=== PATIENT | male | born 1950 | race Caucasian/White ===

== ENCOUNTER 2018-10-18 01:37 | Day surgery (SDC) | payer MEDICARE ==
[2018-10-17 10:29] LABS: PLATELET COUNT, AUTOMATED 330 K/uL (150-450)
[~2018-10-18] VITALS: Ht 185.4 cm; Wt 69.4 kg
[2018-10-18] VITALS (10 sets, daily range): BP systolic 150–181; BP diastolic 79–92
[2018-10-18] MEDS ORDERED: LIDOCAINE/SOD BICARB 8.4% SYR ID ONE (06:45)
[2018-10-18] MEDS ORDERED: ACETAMINOPHEN 500 MG TAB PO ONE (06:45)
[2018-10-18] MEDS ORDERED: PREGABALIN 150 MG CAPSULE PO ONE (06:45)
[2018-10-18] MEDS ORDERED: FAMOTIDINE 20 MG TAB PO ONE (06:45)
[2018-10-18] MEDS ORDERED: MIDAZOLAM 2 MG/2 ML VIAL IVP PRN (06:45)
[2018-10-18] MEDS ORDERED: ceFAZolin(*) 2GM/D5W 50ML 50 ML IVPB ONE (06:45)
[2018-10-18] MEDS ORDERED: NORMOSOL R SOLN(*) 1000 ML BAG 1,000 ML IV PRN (06:45)
[2018-10-18] MEDS ORDERED: ROPIVACAINE 0.5% 20 ML VIAL ONE (13:44)
[2018-10-18] MEDS ORDERED: ROCURONIUM BR 10 MG/ML 5 ML SY 5 ML ONE (14:18)
[2018-10-18] MEDS ORDERED: ONDANSETRON 4 MG/2 ML VIAL ONE (14:30)
[2018-10-18] MEDS ORDERED: DEXAMETHASONE SOD PHOS 10MG/ML ONE (14:30)
[2018-10-18] MEDS ORDERED: PROPOFOL EMUL(*) 10MG/ML 20 ML 20 ML ONE (14:30)
[2018-10-18] MEDS ORDERED: HYDROmorphone HCL 2 MG/ML SDV ONE (14:30)
[2018-10-18] MEDS ORDERED: fentaNYL CITR 100 MCG/2 ML AMP ONE (15:31)
[2018-10-18] MEDS ORDERED: LABETALOL HCL 100 MG/20ML VIAL ONE ×2 (15:32)
[2018-10-18] MEDS ORDERED: SUGAMMADEX SOD 200 MG/2 ML SDV ONE (15:34)
[2018-10-18] MEDS ORDERED: DOCU-416 PO (16:03)
[2018-10-18] MEDS ORDERED: TRAM-420 PO (16:03)
[2018-10-18] MEDS ORDERED: hydrALAZINE HCL 20 MG/ML VIAL ONE (16:07)
--- NOTE | 2018-10-18 16:07 | Short(Outpt) Discharge Summary ---
Discharge Summary Reason for Hosp/Final Diag: (1) Right inguinal hernia Status: Chronic Hospital Course & Plan: Robotic RIH repair completed without problems. Departure Discharge to: Home, Self Care Discharge Instructions Home Meds Active Scripts Docusate Sodium (COLACE) 100 Mg Capsule, 1 CAP PO BID, #30 CAP 0 Refills TAKE WITH A FULL GLASS OF WATER Prov:TREVOR MARIA MD 10/18/18 Tramadol Hcl (TRAMADOL HCL) 50 Mg Tablet, 1 TAB PO Q4H, #20 TAB 0 Refills Prov:TREVOR MARIA MD 10/18/18 Follow up Referrals: General Surgery - 10/31/18 @ Surgery, General with TREVOR MARIA MD You have a follow up appointment scheduled with Dr. Maria on 10/31/18, at 2:15pm. Diet: Regular Activity: No Heavy Lifting Special Instructions: You may remove the white surgical dressings on 10/20/18, then you can shower. After showering, leave the incisions open to air but leave the steristrips in place until they fall off on their own. Do not immerse the incisions for 2 weeks. Avoid any activity that involves straining or lifting more than 10 pounds for 2 weeks after surgery. TREVOR MARIA MD Oct 18, 2018 16:07
--- NOTE | 2018-10-18 16:14 | Post Operative Progress Note ---
Post Operative Progress Note Date: Oct 18, 2018 Time: 16:04 Surgeon: Marco A Dictation number: [id number] Anesthesia: GETA by Dr. Lopez Pre-Op Diagnosis: RIH Post-Op Diagnosis: JESSICA, indirect Findings: Right indirect inguinal hernia Procedure(s): Robotic RIH repair Specimen Removed:(May be N/A): None Complications: none Fluids: see anesthesia record Estimated Blood Loss: Minimal Date OP Note Dictated: Oct 18, 2018 Time OP Note Dictated: 16:05 TREVOR MARIA MD Oct 18, 2018 16:14
[2018-10-18] MEDS ORDERED: traMADol 50 MG TAB PO ONE (17:15)
--- NOTE | 2018-10-18 18:48 | NUR ---
DR MARIA NOTIFIED OF CONTINUED HYPERTENSION, OK FOR PATIENT TO GO HOME, ADVISED TO HAVE PATIENT TAKE BLOOD PRESSURES AT HOME AND KEEP A LOG, IF PATIENT BLOOD PRESSURE IS GREATER THAN 200, HE WILL NEED TO GO TO EMERGENCY ROOM. THIS RN VERIFIED WITH PATIENT THAT THEY HAVE A BLOOD PRESSURE MACHINE AND RELAYED ADVICE FROM DR MARIA, PATIENT AND SPOUSE AGREED.
--- NOTE | 2018-10-18 20:51 | OPERATIVE REPORT 1 ---
EVENT DATE: October 18, 2018 SURGEON: Donny Strickland MD ANESTHESIOLOGIST: Aníbal Lopez MD ANESTHESIA: General endotracheal anesthesia. PREOPERATIVE DIAGNOSIS Right inguinal hernia. POSTOPERATIVE DIAGNOSIS Right inguinal hernia, indirect. PROCEDURE PERFORMED Robotic right inguinal hernia repair. COMPLICATIONS None. CONDITION Stable. BLOOD LOSS Minimal. FINDINGS Patient had an indirect right inguinal hernia. There was no obvious left inguinal hernia, but the sigmoid colon was up against the abdominal wall blocking the internal ring, but there did not look to be any herniated contents on the patient's left side. INDICATIONS This is a 67-year-old gentleman who presented to my office with a right groin bulge consistent with inguinal hernia. I discussed his options with him, and he was requesting to have it repaired and agreed to a robotic right inguinal hernia repair. DESCRIPTION OF PROCEDURE The patient was brought to the operating room and placed supine on the operating table. General endotracheal anesthesia was administered, and his abdomen was prepped and draped in a sterile fashion. Timeout was completed, and I injected the left mid abdominal skin with 0.5% ropivacaine plain. I made an 8 mm transverse incision and used the Veress needle to then access the peritoneal cavity with no problems. I then insufflated the peritoneal cavity to a pressure of 15 mmHg. I then used an 8 mm robotic port with an optical trocar in place and used the camera inside the trocar, focused, and inserted this port into the insufflated abdomen under direct visualization without any problems. I then placed another 8 mm port in the supraumbilical midline and a third 8 mm robotic port in the right mid abdomen. I then inspected both groins and saw only a right inguinal hernia. I did not see any hernia on the left side. I inserted a right-sided large piece of ProGrip mesh into the peritoneal cavity as well as an absorbable V-Loc suture, and then the patient was placed in Trendelenburg. The robot was brought in, docked, and targeted, and then I scrubbed out and went to the console. I then divided the peritoneum on the patient's right lower abdomen from just medial to anterior superior iliac spine over across the midline and then created a preperitoneal space all the way down to the groin. I clearly cleaned off the pubic symphysis and right pubic tubercle as well as Pierce ligament and the ileopubic tract from lateral cord structures all the way almost to the anterior superior iliac spine. I then identified the sac and pulled the sac out of the inguinal canal and it from the vas deferens and the gonadal vessels. These were easily identified, and the sac was easily from these structures. Once I had it completely , and the peritoneal edge was well proximal to where the gonadal vessels and the vas deferens splay. I then brought in a piece of mesh in the preperitoneal space and deployed it so that it covered the pubic tubercle, Pierce ligament, and the ileopubic tract, and covered the whole myopectineal arch with several centimeters of overlap on all sides. The mesh laid nice and flat with no wrinkling or other abnormalities. I was very happy with how it looked. I then sewed the peritoneum back together with a running V-Loc absorbable suture. The needle was removed from the abdomen, and the robotic instruments were removed. I scrubbed back in, desufflated the abdomen, and removed the ports. I then closed the skin at each port site with 4-0 Monocryl subcuticular suture. Skin was cleaned and dried, and Steri-Strips were applied, followed by sterile surgical dressings. The patient was awakened, extubated in the operating room, and transported to the recovery room in stable condition having tolerated the procedure without any apparent problems. RITA
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
== END 2018-10-18 16:45 | disposition home or self-care (01) ==
LOC: OR 01:37
PROVIDERS: ATTEND Surgery
DX: K40.90 Unilateral inguinal hernia, without obstruction or gangrene, not specified as recurrent (principal)
CPT/HCPCS: 36415; 49650; 85025; A9270; J0360; J1100; J1170; J2250; J2405; J2704; J3010; S2900; C1781; J0690; J2795